=== PATIENT | male | born 1965 | race Caucasian/White ===

== ENCOUNTER 2020-12-13 08:50 | Outpatient (REF) | payer BC, SELFPAY ==
[2020-12-13 09:32] LABS: Glucose Fasting 127 mg/dL (60-99)
[2020-12-13 09:41] LABS: Estimated Average Glucose 126 mg/dL
[2020-12-13 10:02] LABS: Prostate Specific Antigen 0.63 ng/mL (<0.05-4.0)
== END 2020-12-13 08:51 | disposition home or self-care (01) ==
LOC: HO.LAB 08:50
PROVIDERS: PCP Internal Medicine; Visit Provider Internal Medicine
DX: Z00.00 Encounter for general adult medical examination without abnormal findings (principal); R73.01 Impaired fasting glucose; E66.9 Obesity, unspecified
CPT/HCPCS: 36415; 82947; 83036; 84153

== ENCOUNTER 2021-03-10 06:26 | Outpatient (REF) | payer BC, SELFPAY ==
[2021-03-10 07:00] LABS: MANUAL DIFF FLAG NO
[2021-03-10 07:11] LABS: Basophils Percent Auto 1.2 % (0-2); Eosinophils Absolute Auto 0.1 X10*3/uL (0.0-0.4); Eosinophils Percent Auto 2.4 % (0-4); Hematocrit 46.8 % (42-52); Imm Gran Abs Auto 0.01 X10*3/uL (0.00-0.03); Imm Gran Pct Auto 0.3 % (0.0-0.4); Lymphocytes Absolute Auto 0.8 X10*3/uL (1.2-4.9); Lymphocytes Percent Auto 23.8 % (20-40); Mean Corpuscular HGB Conc 34.2 g/dl (31.0-36.0); Mean Corpuscular Hemoglobin 30.5 pg (27.0-33.0); Mean Corpuscular Volume 89.1 fL (80-98); Mean Platelet Volume 9.9 fL (9.4-12.4); Monocytes Absolute Auto 0.3 X10*3/uL (0.1-1.2); Monocytes Percent Auto 7.9 % (2-11); Neutrophils Absolute Auto 2.1 X10*3/uL (2.0-8.3); Neutrophils Percent Auto 64.4 % (45-73); Platelet Count 200 X10*3/uL (160-400); Red Blood Count 5.25 X10*6/uL (4.60-5.80); Red Cell Distribution Width 11.9 % (11.0-16.0); White Blood Count 3.3 X10*3/uL (4.8-10.8)
[2021-03-10 08:07] LABS: Estimated Average Glucose 126 mg/dL
[2021-03-10 08:11] LABS: Free T4 (Free Thyroxine) 1.01 ng/dL (0.71-1.85); Prostate Specific Antigen Scr 0.51 ng/mL (<0.05-4.0); Thyroid Stimulating Hormone 1.17 uIU/mL (0.32-4.0)
[2021-03-10 08:38] LABS: Alanine Aminotransferase 34 U/L (0-40); Albumin Level 4.3 g/dL (3.5-5.0); Alkaline Phosphatase 93 U/L (39-117); Anion Gap 12 (12-20); Aspartate Amino Transferase 23 U/L (5-37); Bilirubin Total 0.7 mg/dL (0.0-1.0); Blood Urea Nitrogen 24 mg/dL (9-16); Calcium 9.5 mg/dL (8.4-10.2); Carbon Dioxide 27 mmol/L (22-29); Chloride 103 mmol/L (96-108); Cholesterol 210 mg/dL; Estimated Glomerular Filt Rate > 60; Glucose Random 132 mg/dL (60-115); HDL Cholesterol 48 mg/dL; LDL Cholesterol Calculated 139 mg/dl; Potassium 4.3 mmol/L (3.3-5.1); Sodium 138 mmol/L (135-145); Total Protein 6.7 g/dL (6.5-8.0); Triglycerides 117 mg/dL
[2021-03-10 09:34] LABS: Folate 16.8 ng/mL (> or = 4.0); Vitamin B12 566 pg/mL (200-900)
== END 2021-03-10 06:27 | disposition home or self-care (01) ==
LOC: HO.LAB 06:26
PROVIDERS: PCP Internal Medicine; Visit Provider Internal Medicine
DX: R73.02 Impaired glucose tolerance (oral) (principal); E78.00 Pure hypercholesterolemia, unspecified
CPT/HCPCS: 36415; 80053; 80061; 82607; 82746; 83036; 84153; 84439; 84443; 85025

== ENCOUNTER 2022-06-15 07:07 | Outpatient (REF) | payer BC, SELFPAY ==
[2022-06-15 10:44] LABS: Estimated Average Glucose 140 mg/dL; Hemoglobin A1c % 6.5 %
[2022-06-15 10:50] LABS: Alanine Aminotransferase 40 U/L (0-40); Albumin Level 4.2 g/dL (3.5-5.0); Alkaline Phosphatase 78 U/L (39-117); Anion Gap 14 (12-20); Aspartate Amino Transferase 24 U/L (5-37); Bilirubin Total 0.7 mg/dL (0.0-1.0); Blood Urea Nitrogen 17 mg/dL (9-16); Calcium 9.2 mg/dL (8.4-10.2); Carbon Dioxide 28 mmol/L (22-29); Chloride 101 mmol/L (96-108); Cholesterol 221 mg/dL; Estimated Glomerular Filt Rate > 60; Glucose Random 142 mg/dL (60-115); HDL Cholesterol 45 mg/dL; LDL Cholesterol Calculated 149 mg/dl; Potassium 4.4 mmol/L (3.3-5.1); Sodium 139 mmol/L (135-145); Total Protein 6.8 g/dL (6.5-8.0); Triglycerides 136 mg/dL
== END 2022-06-15 07:08 | disposition home or self-care (01) ==
LOC: HO.WFDLDS 07:07
PROVIDERS: PCP Internal Medicine; Visit Provider Internal Medicine
DX: E78.00 Pure hypercholesterolemia, unspecified (principal); R73.02 Impaired glucose tolerance (oral)
CPT/HCPCS: 36415; 80053; 80061; 83036

== ENCOUNTER 2022-10-18 07:38 | Outpatient (REF) | payer BC, SELFPAY ==
[2022-10-18 11:12] LABS: Estimated Average Glucose 126 mg/dL
[2022-10-18 11:33] LABS: Alanine Aminotransferase 29 U/L (0-40); Albumin Level 4.4 g/dL (3.5-5.0); Anion Gap 11 (12-20); Aspartate Amino Transferase 22 U/L (5-37); Bilirubin Total 1.2 mg/dL (0.0-1.0); Blood Urea Nitrogen 16 mg/dL (9-16); Calcium 9.7 mg/dL (8.4-10.2); Carbon Dioxide 31 mmol/L (22-29); Chloride 104 mmol/L (96-108); Cholesterol 191 mg/dL; Estimated Glomerular Filt Rate > 60; Glucose Random 130 mg/dL (60-115); HDL Cholesterol 48 mg/dL; LDL Cholesterol Calculated 123 mg/dl; Sodium 142 mmol/L (135-145); Total Protein 6.7 g/dL (6.5-8.0); Triglycerides 100 mg/dL
[2022-10-18 12:07] LABS: Alkaline Phosphatase 79 U/L (39-117)
[2022-10-18 12:13] LABS: Creatinine Urine 155.09 mg/dL; Microalbum/Creatinine Ratio Ur 5.1 ug/mg cr
== END 2022-10-18 07:39 | disposition home or self-care (01) ==
LOC: HO.WFDLDS 07:38
PROVIDERS: Visit Provider Internal Medicine
DX: E11.65 Type 2 diabetes mellitus with hyperglycemia (principal); E78.00 Pure hypercholesterolemia, unspecified
CPT/HCPCS: 36415; 80053; 80061; 82043; 83036

== ENCOUNTER → 2023-01-08 07:43 | Outpatient (REF) | payer OTHER, SELFPAY ==
--- NOTE | 2023-01-08 07:50 | CA_ITS ---
Acquisition Time: 2023-01-08 08:09:22 Total Exercise Time: 00:11:05 Test Indications: CP, PALPITATIONS Medications: SEE H Protocol: DIEGO Max HR: 148 BPM 91% of Pred: 161 BPM Max BP: 204/064 mmHG Max Work Load: 13.4 METS Exercise stress test with exercise 11 min 5 sec of Diego protocol, achieving 92% MPHR, without anginal symptoms, with isolated PVCs at rest and in recovery with runs of bigeminy, and trigeminy , with hypertensive response to exercise with max BP 204/64, without EKG changes meeting criteria for ischemia. In recovery his BP returned to 128/82 . Test reviewed with Dr Bernstein. Referred By: Leticia Holt Overread By: AISLINN RIVERA
== END ==
LOC: HO.CARD 07:43
PROVIDERS: PCP Internal Medicine; Visit Provider Nurse Practitioner Family
DX: R07.89 Other chest pain (principal)
CPT/HCPCS: 93017

== ENCOUNTER → 2023-01-29 15:46 | Outpatient (REF) | payer OTHER, SELFPAY ==
--- NOTE | 2023-01-29 15:49 | CA_ITS ---
Transthoracic Echocardiogram Patient (Last, First, Middle): Marcus Abreu J Gender: Male Date of : 1965 Age: 57 Procedure Date: 01/29/2023 Procedure Type: Transthoracic Echocardiogram Location: OP Height: 175.26 cm Weight: 88.45 kg BSA: 2.04 m2 Heart Rate: bpm BP: 120 / 70 mmHg [place]: Referring MD: Mary Ayers MD Symptoms: I10 - Essential (primary) hypertension Study Quality: Good ECG Rhythm: Sinus Conclusions: - The left ventricular systolic function is normal. The calculated ejection fraction is 66% by biplane method. - No obvious valvular pathology seen on this study. - There is mild dilatation of the ascending aorta measuring 3.70 cm. Findings Left Ventricle Normal left ventricular cavity size. There is mildly increased left ventricular wall thickness. The left ventricular systolic function is normal. The calculated ejection fraction is 66% by biplane method. There is no evidence of regional wall motion abnormalities. Diastolic function is normal for age. Right Ventricle Normal right ventricular cavity size and systolic function. Atria Both atria are normal in size. Aortic Valve There is a normal trileaflet aortic valve. There is no aortic valve stenosis. There is no aortic valve regurgitation. Mitral Valve The mitral valve appears normal. There is no mitral valve regurgitation. There is no mitral valve stenosis. Pulmonic Valve The pulmonic valve is likely normal. Tricuspid Valve Normal tricuspid valve structure. There is trace tricuspid valve regurgitation. There is no evidence of pulmonary hypertension. Great Vessels There is mild dilatation of the ascending aorta measuring 3.70 cm. Venous The inferior vena cava is normal in size and collapses greater than 50% with inspiration. Pericardium/Pleural There is no evidence of pericardial effusion. Prior Study Comparison No prior study available for comparison. Recommendations, Care & Conclusions No obvious valvular pathology seen on this study. Measurements 2D Linear Measurements IVSd: 1.15 0.6-0.9/0.6-1.0 cm LVIDd: 4.41 3.9-5.3/4.2-5.9 cm LVIDd Index: 2.16 2.4-3.2/2.2-3.1 cm/m2 LVIDs: 2.67 2.0-3.6 cm LVPWd: 1.12 0.7-1.1 cm Ao Root: 3.10 2.1-3.5 cm LA Diam: 4.00 2.7-3.8/3.0-4.0 cm LAIDs Index: 1.96 1.5-2.3 cm/m2 LV Mass: 220.80 67-162/88-224 g LV Mass Index: 108.24 43-95/49-115 g/m2 LVOT Diam: 2.00 3.0+(-)1.3 cm 2D Systolic Function EF 4C: 67.20 >55% EF 2C: 66.10 >55% EF BiP: 66.40 >55% Mitral Valve MV Pk E: 0.94 MV PK A: 0.80 MV Decel Time: 195.00 E/A: 1.20 E'Lateral: 11.90 E'Medial: 7.29 E/E' Med: 12.90 E/E' Lat: 7.90 PHT: 57.00 MVA PHT: 3.86 Decel Sanborn: 4.80 Aortic Valve AoV Pk Tyrell: 1.87 AoV Mn Tyrell: 1.13 AoV VTI: 0.39 AoV Pk Grad: 14.00 Aov Mn Grad: 7.00 YOUSIF Cont.VTI: 2.09 LVOT LVOT Pk Tyrell: 1.22 LVOT Mn Tyrell: 0.77 LVOT VTI: 0.26 LVOT Pk Grad: 6.00 LVOT Mn Grad: 3.00 LVOT Diam: 2.00 LVOT Area: 3.14 Diastolic Function MV Pk E: 0.94 MV Pk A: 0.80 E/A: 1.20 E'Medial: 7.29 E/E' Med: 12.90 E' Laterial: 11.90 E/E' Lat: 7.90 Right Ventricle TAPSE (mm): 28.00 TVS' Tyrell: 16.00 Tricuspid Valve TR Pk Tyrell: 2.34 TR Pk Grad: 22.00 RA Press: 3.00 RVSP: 25.00 Great Vessels Aorta Ao Root-2D: 3.10 2.0-3.7 cm Ao Asc: 3.70 2.1-3.4 cm Pulmonary Valve PV Pk Tyrell: 1.49 Peak PV Grad: 9.00 Updated in Other Vendor System with Status of Final Robbie Simon MD electronically signed on 01/29/2023 4:54:18 PM with status of Final
== END ==
LOC: HO.CARD 15:46
PROVIDERS: Visit Provider Internal Medicine
DX: I10 Essential (primary) hypertension (principal)
CPT/HCPCS: 93306

== ENCOUNTER 2023-06-19 08:00 | Outpatient (REF) | payer OTHER, SELFPAY ==
[2023-06-19 11:10] LABS: MANUAL DIFF FLAG NO
[2023-06-19 11:22] LABS: Basophils Percent Auto 0.6 % (0-2); Eosinophils Absolute Auto 0.1 X10*3/uL (0.0-0.4); Eosinophils Percent Auto 1.9 % (0-4); Hematocrit 45.3 % (42.0-52.0); Hemoglobin 15.5 g/dl (14.0-18.0); Imm Gran Abs Auto 0.01 X10*3/uL (0.00-0.03); Imm Gran Pct Auto 0.3 % (0.0-0.4); Lymphocytes Absolute Auto 0.9 X10*3/uL (1.2-4.9); Lymphocytes Percent Auto 30.3 % (20-40); Mean Corpuscular HGB Conc 34.2 g/dl (31.0-36.0); Mean Corpuscular Hemoglobin 30.4 pg (27.0-33.0); Mean Corpuscular Volume 88.8 fL (80.0-98.0); Mean Platelet Volume 10.1 fL (9.4-12.4); Monocytes Absolute Auto 0.3 X10*3/uL (0.1-1.2); Monocytes Percent Auto 8.4 % (2-11); Neutrophils Absolute Auto 1.8 x10*3/uL (2.0-8.3); Neutrophils Percent Auto 58.5 % (45-73); Platelet Count 205 X10*3/uL (160-400); Red Cell Distribution Width 11.5 % (11.0-16.0); White Blood Count 3.1 X10*3/uL (4.8-10.8)
[2023-06-19 11:54] LABS: Alanine Aminotransferase 24 U/L (0-40); Albumin Level 4.1 g/dL (3.5-5.0); Alkaline Phosphatase 79 U/L (39-117); Anion Gap 11 (12-20); Aspartate Amino Transferase 20 U/L (5-37); Bilirubin Total 0.7 mg/dL (0.0-1.0); Blood Urea Nitrogen 19 mg/dL (9-16); Calcium 9.5 mg/dL (8.4-10.2); Carbon Dioxide 26 mmol/L (22-29); Chloride 105 mmol/L (96-108); Cholesterol 198 mg/dL (<200); Estimated Glomerular Filt Rate > 60; Glucose Random 127 mg/dL (60-115); HDL Cholesterol 43 mg/dL (>40); LDL Cholesterol Calculated 129 mg/dL (<100); Potassium 4.1 mmol/L (3.3-5.1); Sodium 138 mmol/L (135-145); Total Protein 6.7 g/dL (6.5-8.0); Triglycerides 131 mg/dL (<150)
[2023-06-19 12:12] LABS: Free T4 (Free Thyroxine) 0.88 ng/dL (0.71-1.85); Thyroid Stimulating Hormone 1.53 uIU/mL (0.32-4.0)
[2023-06-19 12:25] LABS: Creatinine Urine 86.13 mg/dL; Microalbumin Urine < 5.0 mg/L
[2023-06-19 12:27] LABS: Folate 13.5 ng/mL (> or = 4.0); Prostate Specific Antigen Scr 0.63 ng/mL (<0.05-4.0); Vitamin B12 859 pg/mL (200-900)
== END 2023-06-19 08:01 | disposition home or self-care (01) ==
LOC: HO.WFDLDS 08:00
PROVIDERS: Visit Provider Internal Medicine
DX: E11.65 Type 2 diabetes mellitus with hyperglycemia (principal); E78.00 Pure hypercholesterolemia, unspecified
CPT/HCPCS: 36415; 80053; 80061; 82043; 82607; 82746; 84153; 84439; 84443; 85025

== ENCOUNTER 2023-06-25 16:42 | Outpatient (AMB) | payer OTHER, SELFPAY ==
[2023-06-25 16:53] VITALS: BP 136/70; PULSE 70; O2SAT 98; BMI 30.1
--- NOTE | 2023-06-25 16:53 | MHC.PC.OV ---
Vital Signs 06/25/23 16:53 Height 5 ft 8 in Weight 198 lb BMI 30.1 BP 136/70 Blood Pressure Location Lt brachial Position Sitting Pulse 70 Pulse Source Pulse Oximeter Pulse Oximetry (%) 98 Oxygen Delivery Method Room Air Intake Visit Reasons: PHYSICAL Allergies Sulfa (Sulfonamide Antibiotics) [SULFA (SULFONAMIDE ANTIBIOTICS)] Allergy (Unknown, Verified 06/25/23 16:53) HIVES, swelling and itchiness sulfamethoxazole [From Junra] Allergy (Unknown, Verified 06/25/23 16:53) Unknown trimethoprim [From Junra] Allergy (Unknown, Verified 06/25/23 16:53) Unknown Medication List - Last Reconciled 06/25/23 by Mary Ayers MD blood sugar diagnostic (FreeStyle Lite Strips) As directed check the BS QD blood-glucose meter (FreeStyle Lite Meter kit) As directed cholecalciferol (vitamin D3) 50 mcg PO DAILY cyanocobalamin (vitamin B-12) 1,000 mcg PO DAILY lancets (FreeStyle Lancets) As directed check BS QD lisinopril 5 mg PO DAILY multivitamin 1 tab PO DAILY Tobacco use date assessed: 01/03/23 Dental Screening Dental Screen Date: 06/25/23 Did you have a dental visit in the last 12 months?: Yes Did you have a dental problem in the last 6 months where you did not have access to dental care?: No Was dental information given to patient?: Patient has dentist HPI PHYSICAL HPI Details 57-year-old obese male with diabetes mellitus controlled hypercholesterolemia hypertension last seen in October coming in today for physical exam. Blood work was requested. Colonoscopy is up-to-date. Patient had an echocardiogram done January 2023 left ventricular ejection fraction is normal 66% no valvular pathology mild dilatation of the ascending aorta 3.7 cm. Stress test was done January 15- occ dizzy PFSH Medical History Hypercholesterolemia Hypertension Impaired glucose tolerance Leukopenia Obesity (BMI 30-39.9) Vitamin D deficiency Surgical History History of vasectomy Status post excision of lipoma Family History (Updated 06/25/23 @ 16:54 by Chandni Dyer CMA) Father Esophageal cancer Mother No problems noted. Brother Liver cancer Colon cancer Paternal Uncle Mouth cancer Lung cancer Leukemia Myocardial infarct Daughter In good health Family/Other Alcohol abuse Social History (Updated 06/25/23 @ 17:24 by Mary Ayers MD) Housing: House Alcohol intake: current Alcohol intake frequency: holidays/special occasions only Alcohol type: beer, wine and hard liquor Patient Tobacco Use Status: Never used Tobacco e-Cigarette/Vaping Use: Never Used Second Hand Smoke Exposure: No service: No Current occupational status: employed Cognitive needs: No Hearing needs: No Vision needs: Yes Questionnaire PHQ-9 Over the last 2 weeks, how often have you been bothered by any of the following problems? 1. Little interest or pleasure in doing things: not at all 2. Feeling down, depressed, or hopeless: not at all 3. Trouble falling or staying asleep, or sleeping too much: not at all 4. Feeling tired or having little energy: not at all 5. Poor appetite or overeating: not at all 6. Feeling bad about yourself - or that you are a failure or have let yourself or your family down: not at all 7. Trouble concentrating on things, such as reading the newspaper or watching television: not at all 8. Moving or speaking so slowly that other people could have noticed. Or the opposite - being so fidgety or restless that you have been moving around a lot more than usual: not at all 9. Thoughts that you would be better off or of hurting yourself in some way: not at all Total score: 0 Depression Screening Interpretation: Negative Source: Developed by Drs. Ang Adam, Anca Elizondo, Jean Marie Castañeda and colleagues, with an educational anita from [employer]. Thrive Questionnaire Date Thrive assessed: 11/24/22 AUDIT C Alcohol Use Questionnaire (AUDIT-C) 1. How often do you have a drink containing alcohol?: Monthly or less 2. How many drinks containing alcohol do you have on a typical day when you are drinking?: 3 or 4 3. How often do you have six or more drinks on one occasion?: Never Total Score: 2 Score Reviewed/Action Taken: No JACQUI-7 AMB Questionnaire JACQUI-7 Date JACQUI - 7 assessed: 11/24/22 Source: Developed by Drs. Ang Adam, Anca Elizondo, Jean Marie Castañeda and colleagues, with an educational anita from [employer]. Review of Systems Const Denies poor appetite and Denies weakness Eyes Denies no additional complaints ENT Reports Normal hearing present, Denies dizziness, Denies nasal congestion, Denies tinnitus and Denies sore throat Card Denies chest pain, Denies syncope, Denies rapid heart rate and Denies dyspnea Resp Denies cough and Denies dyspnea GI Denies change in stool character, Reports constipation, Denies diarrhea, Denies nausea and Denies vomiting Denies dysuria and Denies urinary frequency Neuro Reports Normal hearing present, Denies confusion, Denies dizziness, Denies syncope and Denies weakness Psych Denies confusion Physical exam (Primary Care) Vital Signs: Last Vital Signs Pulse 70 06/25/23 16:53 BP 136/70 06/25/23 16:53 Pulse Ox 98 06/25/23 16:53 Oxygen Delivery Method Room Air 06/25/23 16:53 Care Plan Goal for BP management: guaiac negative and prostate N BMI result Body Mass Index 30.1 Tobacco/Smoking Status: Tobacco use Status Tobacco use date assessed 01/03/23 06/25/23 16:55 Patient Tobacco Use Status Never used Tobacco 06/25/23 17:24 e-Cigarette/Vaping Use Never Used 06/25/23 17:24 PHQ-9: PHQ-9 Score PHQ-9: Total score 0 06/25/23 17:16 Depression Screening Interpretation: Negative Thrive Assessment: Date of Thrive Assessment Date Thrive assessed 11/24/22 06/25/23 16:55 Const General: No confusion Orientation/consciousness: No confusion HENIA Head: Yes normocephalic Ears: external ears normal and TM's normal bilaterally Face and sinus: Yes normal facial exam Mouth: moist mucous membranes Throat: Yes tonsils normal Eyes Conjunctivae: conjunctivae normal Pupils: Equal, round and reactive pupils present and Pupil accommodation reflex normal Direct Ophthalmoscopy: normal light reflex Neck Neck: No lymphadenopathy Thyroid: Thyroid normal Chest Chest palpation & inspection: normal inspection of the chest Resp Effort & Inspection: normal respiratory effort and no audible wheezes Auscultation: clear to auscultation bilaterally, no crackles, no wheezes and lung sounds not diminished Cardio Rate: regular rate Rhythm: regular rhythm Peripheral pulses: radial pulses present and dorsalis pedis present GI Palpation (GI): no masses Auscultation: normal bowel sounds and normoactive bowel sounds Male General Exam: Yes normal external exam Skin General skin exam: no rashes or lesions noted Rashes: no rashes Neuro General: No confusion Cranial nerves: Yes Equal, round and reactive pupils present and Yes Normal hearing present Cognition (Neuro): normal cognition Gait exam (Neuro): Normal gait present Motor exam (neuro): 5/5 motor strength present throughout Deep tendon reflexes (DTR's): Right brachioradialis reflex intensity grade: 2+, Left brachioradialis reflex intensity grade: 2+, Right patellar reflex intensity grade: 2+ and Left patellar reflex intensity grade: 2+ Extrem General: No edema Results AMB Hemoglobin A1c AMB Hemoglobin A1c 6.1 % Last Edit by WILBUR Ibarra on 06/25/23 17:46 Assessment and Plan Assessment & Plan (1) Annual physical exam: Code(s): Z00.00 - Encounter for general adult medical examination without abnormal findings (2) Type 2 diabetes mellitus with hyperglycemia: Code(s): E11.65 - Type 2 diabetes mellitus with hyperglycemia Plan: Decrease the amount of carbohydrate intake, pasta, bread, rice and potatoes are all sugar and that is aside from all the sweet stuff, remember that fruits are good but they are Sweet also. Hemoglobin A1c goal of less than 6.5 (3) Chest discomfort: Comment: intermittent December 2022 stress test negative, echocardiogram normal ejection fraction January 2023 Code(s): R07.89 - Other chest pain Plan: Cardiac workup negative (4) Ascending aorta dilatation: Comment: January 2023 3.7 Code(s): I77.810 - Thoracic aortic ectasia Plan: Will continue to follow-up (5) Hypercholesterolemia: Code(s): E78.00 - Pure hypercholesterolemia, unspecified Plan: Avoid fried foods, chicken skin, eggs, butter margarine, pastries and meat. Be it pork or beef they have a lot of cholesterol LDL goal of less than 100 and triglyceride of less than 150. decline blood work and cholesterol med (6) Hypertension: Code(s): I10 - Essential (primary) hypertension Plan: Continue with blood pressure medication. Decrease salt intake and exercise patient on lisinopril 5 mg once a day (7) Obesity (BMI 30-39.9): Code(s): E66.9 - Obesity, unspecified Plan: Diet and exercise (8) Multiple nevi: Code(s): D22.9 - Melanocytic nevi, unspecified Orders: Orders Comprehensive Met. Panel 6 Months E11.65 - Type 2 diabetes mellitus with hyperglycemia Hemoglobin A1c 6 Months E11.65 - Type 2 diabetes mellitus with hyperglycemia Lipid Panel 6 Months E78.00 - Pure hypercholesterolemia, unspecified AMB Hemoglobin A1c Today Z13.9 - Encounter for screening, unspecified Referrals Dermatology Referral D22.9 - Melanocytic nevi, unspecified Medications: Refilled lisinopril 5 mg PO DAILY 90 tabs 3RF I10 - Essential (primary) hypertension Coding Level of Care Code Est Pt Prev Care 40-64y(41764) Diagnoses Annual physical exam Z00.00 Type 2 diabetes mellitus with hyperglycemia E11.65 Chest discomfort R07.89 Ascending aorta dilatation I77.810 Hypercholesterolemia E78.00 Hypertension I10 Obesity (BMI 30-39.9) E66.9 Multiple nevi D22.9
== END 2023-06-25 17:56 | disposition home or self-care (01) ==
PROVIDERS: Visit Provider Internal Medicine
DX: Z00.00 Encounter for general adult medical examination without abnormal findings (principal); E11.65 Type 2 diabetes mellitus with hyperglycemia; I77.810 Thoracic aortic ectasia; I10 Essential (primary) hypertension; R07.89 Other chest pain; E78.00 Pure hypercholesterolemia, unspecified; E66.9 Obesity, unspecified; D22.9 Melanocytic nevi, unspecified
CPT/HCPCS: 83036; 99396

== ENCOUNTER 2023-12-06 08:28 | Outpatient (REF) | payer OTHER, SELFPAY ==
[2023-12-06 12:05] LABS: Estimated Average Glucose 143 mg/dL; Hemoglobin A1c % 6.6 % (<6.0)
[2023-12-06 12:28] LABS: Alanine Aminotransferase 35 U/L (0-40); Albumin Level 4.2 g/dL (3.5-5.0); Alkaline Phosphatase 72 U/L (39-117); Anion Gap 12 (12-20); Aspartate Amino Transferase 23 U/L (5-37); Bilirubin Total 0.8 mg/dL (0.0-1.0); Blood Urea Nitrogen 22 mg/dL (9-16); Calcium 9.7 mg/dL (8.4-10.2); Carbon Dioxide 29 mmol/L (22-29); Chloride 101 mmol/L (96-108); Cholesterol 264 mg/dL (<200); Estimated Glomerular Filt Rate > 60; Glucose Random 150 mg/dL (60-115); HDL Cholesterol 47 mg/dL (>40); LDL Cholesterol Calculated 183 mg/dL (<100); Potassium 4.3 mmol/L (3.3-5.1); Sodium 138 mmol/L (135-145); Triglycerides 174 mg/dL (<150)
[2023-12-06 12:31] LABS: Creatinine Urine 130.17 mg/dL
== END 2023-12-06 08:29 | disposition home or self-care (01) ==
LOC: HO.WFDLDS 08:28
PROVIDERS: Visit Provider Internal Medicine
DX: E11.65 Type 2 diabetes mellitus with hyperglycemia (principal); E78.00 Pure hypercholesterolemia, unspecified
CPT/HCPCS: 36415; 80053; 80061; 82570; 83036

== ENCOUNTER 2023-12-07 15:26 | Outpatient (AMB) | payer OTHER, SELFPAY ==
[2023-12-07 15:38] VITALS: BP 134/82; PULSE 88; O2SAT 99; BMI 31.6
--- NOTE | 2023-12-07 15:38 | MHC.PC.OV ---
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 Accompanied by: Self / Same As Patient Allergies Sulfa (Sulfonamide Antibiotics) [SULFA (SULFONAMIDE ANTIBIOTICS)] Allergy (Unknown, Verified 12/07/23 15:41) HIVES, swelling and itchiness sulfamethoxazole [From Septra] Allergy (Unknown, Verified 12/07/23 15:41) Unknown trimethoprim [From Junra] Allergy (Unknown, Verified 12/07/23 15:41) Unknown Medication List - Last Reconciled 12/07/23 by Mary Ayers MD blood sugar diagnostic (FreeStyle Lite Strips) As directed check the BS QD blood-glucose meter (FreeStyle Lite Meter kit) As directed cholecalciferol (vitamin D3) 50 mcg PO DAILY cyanocobalamin (vitamin B-12) 1,000 mcg PO DAILY lancets (FreeStyle Lancets) As directed check BS QD lisinopril 5 mg PO DAILY multivitamin 1 tab PO DAILY Tobacco use date assessed: 12/07/23 Dental Screening Dental Screen Date: 12/07/23 Did you have a dental visit in the last 12 months?: Yes Did you have a dental problem in the last 6 months where you did not have access to dental care?: No Was dental information given to patient?: Patient has dentist HPI Follow up glucose labs HPI Details 58-year-old obese male with diabetes mellitus ascending aorta dilatation hypercholesterolemia hypertension coming in for follow-up last seen in May 2023. Patient is up-to-date with colonoscopy patient also was noted to have an ascending aorta dilatation February 2023. Eye exam September 2023. 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 Brother Liver cancer Colon cancer Paternal Uncle Mouth cancer Lung cancer Leukemia Myocardial infarct Daughter In good health Family/Other Alcohol abuse Social History Housing: House Alcohol intake: current Alcohol intake frequency: holidays/special occasions only Alcohol type: beer, wine and hard liquor Patient Tobacco Use Status: Never used Tobacco e-Cigarette/Vaping Use: Never Used Second Hand Smoke Exposure: No service: No Current occupational status: employed Cognitive needs: No Hearing needs: No Vision needs: Yes Questionnaire PHQ-9 Over the last 2 weeks, how often have you been bothered by any of the following problems? 1. Little interest or pleasure in doing things: not at all 2. Feeling down, depressed, or hopeless: not at all 3. Trouble falling or staying asleep, or sleeping too much: not at all 4. Feeling tired or having little energy: not at all 5. Poor appetite or overeating: not at all 6. Feeling bad about yourself - or that you are a failure or have let yourself or your family down: not at all 7. Trouble concentrating on things, such as reading the newspaper or watching television: not at all 8. Moving or speaking so slowly that other people could have noticed. Or the opposite - being so fidgety or restless that you have been moving around a lot more than usual: not at all 9. Thoughts that you would be better off or of hurting yourself in some way: not at all Total score: 0 Depression Screening Interpretation: Negative Depression Screening Done: Yes 23764 - PHQ-9 Billing: Yes Source: Developed by Drs. Ang Adam, Anca Elizondo, Jean Marie Castañeda and colleagues, with an educational anita from [employer]. Thrive Questionnaire Date Thrive assessed: 12/07/23 I am a: Patient What is your living situation today?: I have a steady place to live Within the past 12 months, did the food you bought not last and you didn't have the money to get more?: Never true Within the past 12 months, did you worry whether your food would run out before you got money to buy more?: Never true Do you have trouble paying for medicines?: No Do you have trouble getting transportation to medical appointments?: No Do you have trouble paying your heating and electricity bill?: No Do you have trouble taking care of your child, family member or friend?: No Do you have trouble with day-to-day activities such as bathing, preparing meals, shopping, managing finances, etc.?: No Are you currently unemployed and looking for a job?: No Are you interested in more education?: No Please select the resources that you would like help with: None Currently or been in a relationship where the following occur: no concerns reported THRIVE Score: 0 AUDIT C Alcohol Use Questionnaire (AUDIT-C) 1. How often do you have a drink containing alcohol?: 2-3 times a week 2. How many drinks containing alcohol do you have on a typical day when you are drinking?: 3 or 4 3. How often do you have six or more drinks on one occasion?: Never Total Score: 4 JACQUI-7 AMB Questionnaire JACQUI-7 Date JACQUI - 7 assessed: 12/07/23 Feeling nervous, anxious, or on edge: 0 = Not at all Not being able to stop or control worryin = Not at all Worrying too much about different things: 0 = Not at all Trouble relaxin = Not at all Being so restless that it is hard to sit still: 0 = Not at all Becoming easily annoyed or irritable: 0 = Not at all Feeling afraid as if something awful might happen: 0 = Not at all Total JACQUI-7 score (0-4 normal; 5-9 mild; 10-14 moderate; 15-21 severe): 0 Source: Developed by Drs. Ang Adam, Anca Elizondo, Jean Marie Castañeda and colleagues, with an educational anita from [employer]. JACQUI-7 Assessment Billing JACQUI-7 Assessment Tool: JACQUI-7 Assessment 97989 Physical exam (Primary Care) BMI result Body Mass Index 31.6 Tobacco/Smoking Status: Tobacco use Status Tobacco use date assessed 01/03/23 06/25/23 16:55 Patient Tobacco Use Status Never used Tobacco 06/25/23 17:24 e-Cigarette/Vaping Use Never Used 06/25/23 17:24 Depression Screening Interpretation: Negative Thrive Assessment: Date of Thrive Assessment Date Thrive assessed 11/24/22 06/25/23 16:55 Currently or been in a relationship where the following occur: no concerns reported Const General: alert; No acute distress Eyes Conjunctivae: conjunctivae normal Resp Auscultation: clear to auscultation bilaterally Cardio Rate: regular rate Rhythm: regular rhythm GI Inspection: Yes normal to inspection Extrem General: Yes normal to inspection and No edema Assessment and Plan Assessment & Plan (1) Type 2 diabetes mellitus with hyperglycemia: Code(s): E11.65 - Type 2 diabetes mellitus with hyperglycemia Plan: Decrease the amount of carbohydrate intake, pasta, bread, rice and potatoes are all sugar and that is aside from all the sweet stuff, remember that fruits are good but they are Sweet also. Hemoglobin A1c goal of less than 6.5. Discussed with the patient on the need to eat better and exercise so that the blood sugar with get lower (2) Hypercholesterolemia: Code(s): E78.00 - Pure hypercholesterolemia, unspecified Plan: Avoid fried foods, chicken skin, eggs, butter margarine, pastries and meat. Be it pork or beef they have a lot of cholesterol LDL goal of less than 100 and triglyceride of less than 150 start patient on simvastatin 5 mg once a day (3) Hypertension: Code(s): I10 - Essential (primary) hypertension Plan: Continue with lisinopril 5 mg once a day (4) Obesity (BMI 30-39.9): Code(s): E66.9 - Obesity, unspecified Plan: Diet and exercise (5) Ascending aorta dilatation: Comment: January 2023 3.7 Code(s): I77.810 - Thoracic aortic ectasia Plan: Will continue to monitor Orders: Orders Lipid Panel 3 Months E78.00 - Pure hypercholesterolemia, unspecified Comprehensive Met. Panel 3 Months E78.00 - Pure hypercholesterolemia, unspecified Hemoglobin A1c 3 Months E11.65 - Type 2 diabetes mellitus with hyperglycemia Medications: New simvastatin 5 mg PO BEDTIME 30 tabs 5RF E78.00 - Pure hypercholesterolemia, unspecified Coding Level of Care Code Est Pt Level 4 (58685) Diagnoses Type 2 diabetes mellitus with hyperglycemia E11.65 Hypercholesterolemia E78.00 Hypertension I10 Obesity (BMI 30-39.9) E66.9 Ascending aorta dilatation I77.810 Additional Codes JACQUI-7 Assessment Billing - JACQUI-7 Assessment Tool: JACQUI-7 Assessment [id number] ([id number])
== END 2023-12-07 16:05 | disposition home or self-care (01) ==
PROVIDERS: PCP Internal Medicine; Visit Provider Internal Medicine
DX: E11.65 Type 2 diabetes mellitus with hyperglycemia (principal); I77.810 Thoracic aortic ectasia; E66.9 Obesity, unspecified; Z68.31 Body mass index [BMI] 31.0-31.9, adult; E78.00 Pure hypercholesterolemia, unspecified; I10 Essential (primary) hypertension
CPT/HCPCS: 99214

== ENCOUNTER 2024-03-05 06:13 | Outpatient (REF) | payer OTHER, SELFPAY ==
[2024-03-05 08:19] LABS: Estimated Average Glucose 134 mg/dL; Hemoglobin A1c % 6.3 % (<6.0)
[2024-03-05 08:31] LABS: Alanine Aminotransferase 25 U/L (0-40); Albumin Level 4.2 g/dL (3.5-5.0); Alkaline Phosphatase 75 U/L (39-117); Anion Gap 13 (12-20); Aspartate Amino Transferase 18 U/L (5-37); Bilirubin Total 0.9 mg/dL (0.0-1.0); Blood Urea Nitrogen 19 mg/dL (9-16); Calcium 9.5 mg/dL (8.4-10.2); Carbon Dioxide 27 mmol/L (22-29); Chloride 105 mmol/L (96-108); Cholesterol 208 mg/dL (<200); Estimated Glomerular Filt Rate > 60; Glucose Random 117 mg/dL (60-115); HDL Cholesterol 47 mg/dL (>40); LDL Cholesterol Calculated 142 mg/dL (<100); Sodium 141 mmol/L (135-145); Total Protein 6.8 g/dL (6.5-8.0); Triglycerides 96 mg/dL (<150)
== END 2024-03-05 06:14 | disposition home or self-care (01) ==
LOC: HO.LAB 06:13
PROVIDERS: PCP Internal Medicine; Visit Provider Internal Medicine
DX: E11.65 Type 2 diabetes mellitus with hyperglycemia (principal); E78.00 Pure hypercholesterolemia, unspecified
CPT/HCPCS: 36415; 80053; 80061; 83036

== ENCOUNTER 2024-03-10 16:39 | Outpatient (AMB) | payer OTHER, SELFPAY ==
--- NOTE | 2024-03-10 16:41 | MHC.PC.OV ---
Vital Signs 03/10/24 16:42 Height 5 ft 8 in Weight 199 lb BMI 30.3 BP 160/92 H Blood Pressure Location Lt brachial Position Sitting Pulse 88 Pulse Source Pulse Oximeter Pulse Oximetry (%) 98 Oxygen Delivery Method Room Air Intake Visit Reasons: Hypercholesterolemia diabetes mellitus Allergies Sulfa (Sulfonamide Antibiotics) [SULFA (SULFONAMIDE ANTIBIOTICS)] Allergy (Unknown, Verified 03/10/24 16:43) HIVES, swelling and itchiness sulfamethoxazole [From Junra] Allergy (Unknown, Verified 03/10/24 16:43) Unknown trimethoprim [From Junra] Allergy (Unknown, Verified 03/10/24 16:43) Unknown Medication List - Last Reconciled 03/10/24 by Mary Ayers MD blood sugar diagnostic (FreeStyle Lite Strips) As directed check the BS QD blood-glucose meter (FreeStyle Lite Meter kit) As directed cholecalciferol (vitamin D3) 50 mcg PO DAILY cyanocobalamin (vitamin B-12) 1,000 mcg PO DAILY lancets (FreeStyle Lancets) As directed check BS QD lisinopril 5 mg PO DAILY multivitamin 1 tab PO DAILY Tobacco use date assessed: 12/07/23 Dental Screening Dental Screen Date: 03/10/24 Did you have a dental visit in the last 12 months?: Yes Did you have a dental problem in the last 6 months where you did not have access to dental care?: No Was dental information given to patient?: Patient has dentist HPI Hypercholesterolemia diabetes mellitus HPI Details 58-year-old obese male with controlled diabetes mellitus hypertension hypercholesterolemia ascending aorta dilatation coming in for follow-up. Last seen in November 2023. Weight is come down 9 lb. Colonoscopy is up-to-date October 2024 years echocardiogram last done in February 2023 ascending aorta 3.7 cm. Reviewed the notes November 2023 ER visit fever and weakness CT abdomen showing inflammatory thickening of the wall of multiple continues loops proximal to the mid small bowel compatible with enteritis. for choleserol 2nd week taking this - L arm pain so stopped . [facility] Medical History Hypercholesterolemia Hypertension Impaired glucose tolerance Leukopenia Obesity (BMI 30-39.9) Vitamin D deficiency Surgical History Status post excision of lipoma History of vasectomy Family History Father Esophageal cancer Mother No problems noted. Brother Liver cancer Colon cancer Paternal Uncle Mouth cancer Lung cancer Leukemia Myocardial infarct Daughter In good health Family/Other Alcohol abuse Social History Housing: House Alcohol intake: current Alcohol intake frequency: holidays/special occasions only Alcohol type: beer, wine and hard liquor Patient Tobacco Use Status: Never used Tobacco e-Cigarette/Vaping Use: Never Used Second Hand Smoke Exposure: No service: No Current occupational status: employed Cognitive needs: No Hearing needs: No Vision needs: Yes Questionnaire PHQ-9 Over the last 2 weeks, how often have you been bothered by any of the following problems? 1. Little interest or pleasure in doing things: not at all 2. Feeling down, depressed, or hopeless: not at all 3. Trouble falling or staying asleep, or sleeping too much: not at all 4. Feeling tired or having little energy: not at all 5. Poor appetite or overeating: not at all 6. Feeling bad about yourself - or that you are a failure or have let yourself or your family down: not at all 7. Trouble concentrating on things, such as reading the newspaper or watching television: not at all 8. Moving or speaking so slowly that other people could have noticed. Or the opposite - being so fidgety or restless that you have been moving around a lot more than usual: not at all 9. Thoughts that you would be better off or of hurting yourself in some way: not at all Total score: 0 Depression Screening Interpretation: Negative Depression Screening Done: Yes 52219 - PHQ-9 Billing: Yes Source: Developed by Drs. Ang dAam, Anca Elizondo, Jean Marie Castañeda and colleagues, with an educational anita from [email or web address]. Thrive Questionnaire Date Thrive assessed: 12/07/23 AUDIT C Alcohol Use Questionnaire (AUDIT-C) 1. How often do you have a drink containing alcohol?: 2-3 times a week 2. How many drinks containing alcohol do you have on a typical day when you are drinking?: 3 or 4 3. How often do you have six or more drinks on one occasion?: Never Total Score: 4 JACQUI-7 AMB Questionnaire JACQUI-7 Date JACQUI - 7 assessed: 12/07/23 Source: Developed by Drs. Ang Adam, Anca Elizondo, Jean Marie Castañeda and colleagues, with an educational anita from [email or web address]. Physical exam (Primary Care) Vital Signs: Last Vital Signs Pulse 88 03/10/24 16:42 BP 160/92 H 03/10/24 16:42 Pulse Ox 98 03/10/24 16:42 Oxygen Delivery Method Room Air 03/10/24 16:42 BMI result Body Mass Index 30.3 Tobacco/Smoking Status: Tobacco use Status Tobacco use date assessed 12/07/23 03/10/24 16:41 Patient Tobacco Use Status Never used Tobacco 03/10/24 16:41 e-Cigarette/Vaping Use Never Used 03/10/24 16:41 PHQ-9: PHQ-9 Score PHQ-9: Total score 0 03/10/24 16:49 Depression Screening Interpretation: Negative Thrive Assessment: Date of Thrive Assessment Date Thrive assessed 12/07/23 03/10/24 16:41 Const General: alert; No acute distress Eyes Conjunctivae: conjunctivae normal Resp Auscultation: clear to auscultation bilaterally Cardio Rate: regular rate Rhythm: regular rhythm GI Inspection: Yes normal to inspection Extrem General: Yes normal to inspection and No edema Assessment and Plan Assessment & Plan (1) Type 2 diabetes mellitus with hyperglycemia: Code(s): E11.65 - Type 2 diabetes mellitus with hyperglycemia Plan: Decrease the amount of carbohydrate intake, pasta, bread, rice and potatoes are all sugar and that is aside from all the sweet stuff, remember that fruits are good but they are Sweet also. Hemoglobin A1c goal of less than 6.5. Patient on diet control. (2) Hypertension: Code(s): I10 - Essential (primary) hypertension Plan: Continue with blood pressure medication. Decrease salt intake and exercise presently on lisinopril 5 mg once a day. advised monitor and record (3) Hypercholesterolemia: Code(s): E78.00 - Pure hypercholesterolemia, unspecified Plan: Avoid fried foods, chicken skin, eggs, butter margarine, pastries and meat. Be it pork or beef they have a lot of cholesterol LDL goal of less than 100 and triglyceride of less than 150. admits to have held using . but pain L arm not any better with no med. will start cholesterol med and retest 3 months (4) Obesity (BMI 30-39.9): Code(s): E66.9 - Obesity, unspecified Plan: Noted weight loss, continue with this (5) Ascending aorta dilatation: Comment: January 2023 3.7 Code(s): I77.810 - Thoracic aortic ectasia Plan: Ordering for echocardiogram (6) Arm pain, left: Code(s): M79.602 - Pain in left arm Plan: xray ordered. Orders: Orders CA echo transthoracic complete Today I77.810 - Thoracic aortic ectasia Hemoglobin A1c 3 Months E78.00 - Pure hypercholesterolemia, unspecified Lipid Panel 3 Months E78.00 - Pure hypercholesterolemia, unspecified Comprehensive Met. Panel 3 Months E78.00 - Pure hypercholesterolemia, unspecified XR humerus LT Today M79.602 - Pain in left arm Coding Level of Care Code Est Pt Level 4 (52978) Diagnoses Type 2 diabetes mellitus with hyperglycemia E11.65 Hypertension I10 Hypercholesterolemia E78.00 Obesity (BMI 30-39.9) E66.9 Ascending aorta dilatation I77.810 Arm pain, left M79.602
[2024-03-10 16:42] VITALS: BP 160/92; PULSE 88; O2SAT 98; BMI 30.3
== END 2024-03-10 17:18 | disposition home or self-care (01) ==
PROVIDERS: PCP Internal Medicine; Visit Provider Internal Medicine
DX: E11.65 Type 2 diabetes mellitus with hyperglycemia (principal); I77.810 Thoracic aortic ectasia; E66.9 Obesity, unspecified; Z68.30 Body mass index [BMI] 30.0-30.9, adult; I10 Essential (primary) hypertension; E78.00 Pure hypercholesterolemia, unspecified; M79.602 Pain in left arm
CPT/HCPCS: 99214

== ENCOUNTER 2024-03-14 15:30 | Outpatient (REF) | payer OTHER, SELFPAY ==
--- NOTE | ~2024-03-14 | XR_ITS ---
EXAMINATION: XR HUMERUS, LEFT CLINICAL INFORMATION: Pain in left arm COMPARISON: None available. TECHNIQUE: AP and lateral views of the left humerus. FINDINGS: The bones and soft tissues are normal. No fracture. Imaged portions of the shoulder and elbow are unremarkable. XR/XR humerus LT IMPRESSION: Normal left humerus.
== END 2024-03-14 15:31 | disposition home or self-care (01) ==
LOC: HO.XRAY 15:30
PROVIDERS: PCP Internal Medicine; Visit Provider Internal Medicine
DX: M79.602 Pain in left arm (principal)
CPT/HCPCS: 73060

== ENCOUNTER → 2024-04-02 14:46 | Outpatient (REF) | payer OTHER, SELFPAY ==
--- NOTE | 2024-04-02 14:52 | CA_ITS ---
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 Normal LV ejection fraction 60 65% 2. Mildly increased gradient across aortic valve without clear aortic stenosis 3. Normal RV systolic pressure 4. Mildly dilated ascending aorta at 3.8 cm 5. No gross pericardial effusion Findings Left Ventricle Normal left ventricular size, thickness, and systolic function. The visually estimated ejection fraction is between 60-65%. Spectral Doppler is indicative of a normal filling pattern. E/E prime ratio is between 8 and 15 consistent with indeterminate filling pressures. Right Ventricle Normal right ventricular cavity size and systolic function. Atria Both atria are normal in size. Interatrial shunt cannot be excluded. Aortic Valve The aortic valve was not well visualized. There is no aortic valve stenosis. There is no aortic valve regurgitation. Mitral Valve There is mild anterior and posterior mitral leaflet thickening. There is trace mitral valve regurgitation. There is no mitral valve stenosis. Pulmonic Valve The pulmonic valve was not well visualized. Tricuspid Valve Likely normal tricuspid valve structure and function. There is mild tricuspid valve regurgitation. The right ventricular systolic pressure is normal. The right ventricular systolic pressure is 29 mmHg. Normal right atrial pressure. There is no evidence of pulmonary hypertension. Great Vessels The pulmonary artery was not well visualized. There is mild dilatation of the ascending aorta measuring 3.80 cm. Venous The inferior vena cava is normal in size and collapses greater than 50% with inspiration. Pericardium/Pleural There is no evidence of pericardial effusion. Measurements 2D Linear Measurements IVSd: 0.75 0.6-0.9/0.6-1.0 cm LVIDd: 4.75 3.9-5.3/4.2-5.9 cm LVIDd Index: 2.32 2.4-3.2/2.2-3.1 cm/m2 LVIDs: 2.69 2.0-3.6 cm LVPWd: 0.96 0.7-1.1 cm LA Diam: 3.50 2.7-3.8/3.0-4.0 cm LAIDs Index: 1.71 1.5-2.3 cm/m2 LV Mass: 168.65 67-162/88-224 g LV Mass Index: 82.27 43-95/49-115 g/m2 LVOT Diam: 2.00 3.0+(-)1.3 cm 2D Systolic Function EF 4C: 62.90 >55% EF 2C: 67.20 >55% EF BiP: 64.30 >55% Mitral Valve MV Pk E: 0.76 MV PK A: 0.64 MV Decel Time: 229.00 E/A: 1.20 E'Lateral: 11.30 E'Medial: 7.62 E/E' Med: 10.00 E/E' Lat: 6.80 PHT: 67.00 MVA PHT: 3.28 Decel [place]: 3.33 Aortic Valve AoV Pk Tyrell: 1.69 AoV Mn Tyrell: 1.16 AoV VTI: 0.35 AoV Pk Grad: 11.00 Aov Mn Grad: 6.00 YOUSIF Cont.VTI: 2.24 LVOT LVOT Pk Tyrell: 1.16 LVOT Mn Tyrell: 0.79 LVOT VTI: 0.25 LVOT Pk Grad: 5.00 LVOT Mn Grad: 3.00 LVOT Diam: 2.00 LVOT Area: 3.14 Diastolic Function MV Pk E: 0.76 MV Pk A: 0.64 E/A: 1.20 E'Medial: 7.62 E/E' Med: 10.00 E' Laterial: 11.30 E/E' Lat: 6.80 Right Ventricle TAPSE (mm): 23.50 TVS' Tyrell: 13.20 Tricuspid Valve TR Pk Tyrell: 2.54 TR Pk Grad: 26.00 RA Press: 3.00 RVSP: 29.00 Great Vessels Aorta Sinus of Valsalva: 3.27 2.0-3.[address] [place]: 2.63 1.7-3.4 cm Ao Asc: 3.80 2.1-3.4 cm Updated in Other Vendor System with Status of Final Ludin Haywood MD electronically signed on 04/02/2024 5:12:36 PM with status of Final
== END ==
LOC: HO.CARD 14:46
PROVIDERS: PCP Internal Medicine; Visit Provider Internal Medicine
DX: I77.810 Thoracic aortic ectasia (principal)
CPT/HCPCS: 93306

== ENCOUNTER → 2024-04-02 14:52 | Outpatient (BNV) | payer OTHER, SELFPAY | PROVIDERS: PCP Internal Medicine; Visit Provider Internal Medicine Cardiovascular Disease | DX: I36.1 Nonrheumatic tricuspid (valve) insufficiency (principal); I35.8 Other nonrheumatic aortic valve disorders | CPT/HCPCS: 93306 ==

== ENCOUNTER 2024-06-19 06:13 | Outpatient (REF) | payer OTHER, SELFPAY ==
[2024-06-19 07:27] LABS: Estimated Average Glucose 128 mg/dL; Hemoglobin A1c % 6.1 % (<6.0)
[2024-06-19 07:28] LABS: Alanine Aminotransferase 29 U/L (0-40); Albumin Level 4.3 g/dL (3.5-5.0); Alkaline Phosphatase 73 U/L (39-117); Anion Gap 12 (12-20); Aspartate Amino Transferase 23 U/L (5-37); Bilirubin Total 0.9 mg/dL (0.0-1.0); Blood Urea Nitrogen 20 mg/dL (9-16); Calcium 9.7 mg/dL (8.4-10.2); Carbon Dioxide 28 mmol/L (22-29); Chloride 103 mmol/L (96-108); Cholesterol 209 mg/dL (<200); Estimated Glomerular Filt Rate > 60; Glucose Random 136 mg/dL (60-115); HDL Cholesterol 46 mg/dL (>40); LDL Cholesterol Calculated 134 mg/dL (<100); Sodium 139 mmol/L (135-145); Total Protein 6.9 g/dL (6.5-8.0); Triglycerides 147 mg/dL (<150)
== END 2024-06-19 06:14 | disposition home or self-care (01) ==
LOC: HO.LAB 06:13
PROVIDERS: PCP Internal Medicine; Visit Provider Internal Medicine
DX: E78.00 Pure hypercholesterolemia, unspecified (principal); Z13.1 Encounter for screening for diabetes mellitus
CPT/HCPCS: 36415; 80053; 80061; 83036

== ENCOUNTER 2024-06-26 11:15 | Outpatient (AMB) | payer OTHER, SELFPAY ==
[2024-06-26 11:16] VITALS: BP 136/88; PULSE 76; O2SAT 97; BMI 29.6
--- NOTE | 2024-06-26 11:16 | A.OFFPC_ITS ---
Vital Signs 06/26/24 11:16 Height 5 ft 8 in Weight 195 lb BMI 29.6 BP 136/88 Blood Pressure Location Lt brachial Position Sitting Pulse 76 Pulse Source Pulse Oximeter Pulse Oximetry (%) 97 Oxygen Delivery Method Room Air Intake Visit Reasons: PE Allergies Sulfa (Sulfonamide Antibiotics) [SULFA (SULFONAMIDE ANTIBIOTICS)] Allergy (Unknown, Verified 06/26/24 11:17) HIVES, swelling and itchiness sulfamethoxazole [From Septra] Allergy (Unknown, Verified 06/26/24 11:17) Unknown trimethoprim [From Septra] Allergy (Unknown, Verified 06/26/24 11:17) Unknown Medication List - Last Reconciled 06/26/24 by Mary Ayers MD blood sugar diagnostic (FreeStyle Lite Strips) As directed check the BS QD blood-glucose meter (FreeStyle Lite Meter kit) As directed cholecalciferol (vitamin D3) 50 mcg PO DAILY cyanocobalamin (vitamin B-12) 1,000 mcg PO DAILY lancets (FreeStyle Lancets) As directed check BS QD lisinopril 5 mg PO DAILY multivitamin 1 tab PO DAILY Tobacco use date assessed: 12/07/23 Dental Screening Dental Screen Date: 06/26/24 Did you have a dental visit in the last 12 months?: Yes Did you have a dental problem in the last 6 months where you did not have access to dental care?: No Was dental information given to patient?: Patient has dentist HPI PE HPI Details 58-year-old overweight male(noted 4 lb w eight loss) with controlled diabetes mellitus hypertension hypercholesterolemia has an ascending aorta dilatation also patient comes in for physical exam last seen in 03/17/2024. Patient's colonoscopy is up-to-date October 2024 years. Had dilated ascending aorta which has been stable.Normal LV ejection fraction 60 65% 2. Mildly increased gradient across aort ic valve without clear aortic stenosis 3. Normal RV systolic pressure 4. Mildly dilated ascending aorta at 3.8 cm 5. No gross pericardial effusion March Medical History Hypercholesterolemia Hypertension Impaired glucose tolerance Leukopenia Obesity (BMI 30-39.9) Vitamin D deficiency Surgical History Status post excision of lipoma History of vasectomy Family History (Updated 06/26/24 @ 11:57 by Mary Ayers MD) Father Esophageal cancer Prostate cancer Mother No problems noted. Brother Liver cancer Colon cancer Paternal Uncle Mouth cancer Lung cancer Leukemia Myocardial infarct Prostate cancer Daughter In good health Family/Other Alcohol abuse Social History (Updated 06/26/24 @ 11:58 by Mary Ayers MD) Housing: House Alcohol intake: current Alcohol intake frequency: holidays/special occasions only Alcohol type: beer, wine and hard liquor Comment: 1-2 a week 2-3 drinks Patient Tobacco Use Status: Never used Tobacco Tobacco use type: Cigarette e-Cigarette/Vaping Use: Never Used Second Hand Smoke Exposure: No service: No Current occupational status: employed Cognitive needs: No Hearing needs: No Vision needs: Yes Questionnaire PHQ-9 Over the last 2 weeks, how often have you been bothered by any of the following problems? 1. Little interest or pleasure in doing things: not at all 2. Feeling down, depressed, or hopeless: not at all 3. Trouble falling or staying asleep, or sleeping too much: not at all 4. Feeling tired or having little energy: not at all 5. Poor appetite or overeating: not at all 6. Feeling bad about yourself - or that you are a failure or have let yourself or your family down: not at all 7. Trouble concentrating on things, such as reading the newspaper or watching television: not at all 8. Moving or speaking so slowly that other people could have noticed. Or the opposite - being so fidgety or restless that you have been moving around a lot more than usual: not at all 9. Thoughts that you would be better off or of hurting yourself in some way: not at all Total score: 0 Depression Screening Interpretation: Negative Depression Screening Done: Yes 72856 - PHQ-9 Billing: Yes Source: Developed by Drs. Ang Adam, Anca Elizondo, Jean Marie Castañeda and colleagues, with an educational anita from [employer]. Thrive Questionnaire Date Thrive assessed: 12/07/23 AUDIT C Alcohol Use Questionnaire (AUDIT-C) 1. How often do you have a drink containing alcohol?: 2-3 times a week 2. How many drinks containing alcohol do you have on a typical day when you are drinking?: 3 or 4 3. How often do you have six or more drinks on one occasion?: Never Total Score: 4 JACQUI-7 AMB Questionnaire JACQUI-7 Date JACQUI - 7 assessed: 06/26/24 Feeling nervous, anxious, or on edge: 0 = Not at all Not being able to stop or control worryin = Not at all Worrying too much about different things: 0 = Not at all Trouble relaxin = Not at all Being so restless that it is hard to sit still: 0 = Not at all Becoming easily annoyed or irritable: 0 = Not at all Feeling afraid as if something awful might happen: 0 = Not at all Total JACQUI-7 score (0-4 normal; 5-9 mild; 10-14 moderate; 15-21 severe): 0 Source: Developed by Drs. Ang Adam, Anca Elizondo, Jean Marie Castañeda and colleagues, with an educational anita from [employer]. JACQUI-7 Assessment Billing JACQUI-7 Assessment Tool: JACQUI-7 Assessment 76115 Review of Systems Const Denies poor appetite and Denies weakness Eyes Denies no additional complaints ENT Reports Normal hearing present, Denies dizziness, Denies nasal congestion, Denies tinnitus and Denies sore throat Card Denies chest pain, Denies syncope, Denies rapid heart rate and Denies dyspnea Resp Denies cough and Denies dyspnea GI Denies change in stool character, Reports constipation, Denies diarrhea, Denies nausea and Denies vomiting Denies dysuria and Denies urinary frequency Neuro Reports Normal hearing present, Denies confusion, Denies dizziness, Denies syncope and Denies weakness Psych Denies confusion Physical exam (Primary Care) Vital Signs: Last Vital Signs Pulse 76 06/26/24 11:16 BP 136/88 06/26/24 11:16 Pulse Ox 97 06/26/24 11:16 Oxygen Delivery Method Room Air 06/26/24 11:16 BMI result Body Mass Index 29.6 Tobacco/Smoking Status: Tobacco use Status Tobacco use date assessed 12/07/23 06/26/24 11:18 Patient Tobacco Use Status Never used Tobacco 06/26/24 11:18 Tobacco use type Cigarette 06/26/24 11:18 e-Cigarette/Vaping Use Never Used 06/26/24 11:18 PHQ-9: PHQ-9 Score PHQ-9: Total score 0 06/26/24 11:36 Depression Screening Interpretation: Negative Thrive Assessment: Date of Thrive Assessment Date Thrive assessed 12/07/23 06/26/24 11:18 Const General: No confusion Orientation/consciousness: No confusion HENMT Head: Yes normocephalic Ears: external ears normal and TM's normal bilaterally Face and sinus: Yes normal facial exam Mouth: moist mucous membranes Throat: Yes tonsils normal Eyes Conjunctivae: conjunctivae normal Pupils: Equal, round and reactive pupils present and Pupil accommodation reflex normal Direct Ophthalmoscopy: normal light reflex Neck Neck: No lymphadenopathy Thyroid: Thyroid normal Chest Chest palpation & inspection: normal inspection of the chest Resp Effort & Inspection: normal respiratory effort and no audible wheezes Auscultation: clear to auscultation bilaterally, no crackles, no wheezes and lung sounds not diminished Cardio Rate: regular rate Rhythm: regular rhythm Peripheral pulses: radial pulses present and dorsalis pedis present GI Other: guaiac negative prostate mild enlarged Palpation (GI): no masses Auscultation: normal bowel sounds and normoactive bowel sounds Male General Exam: Yes normal external exam Skin General skin exam: no rashes or lesions noted Rashes: no rashes Neuro General: No confusion Cranial nerves: Yes Equal, round and reactive pupils present and Yes Normal hearing present Cognition (Neuro): normal cognition Gait exam (Neuro): Normal gait present Motor exam (neuro): 5/5 motor strength present throughout Deep tendon reflexes (DTR's): Right brachioradialis reflex intensity grade: 2+, Left brachioradialis reflex intensity grade: 2+, Right patellar reflex intensity grade: 2+ and Left patellar reflex intensity grade: 2+ Extrem General: No edema Results AMB Hemoglobin A1c AMB Hemoglobin A1c 6.2 % Last Edit by Chandni Dyer CMA on 06/26/24 11 :36 Results Reviewed Results Reviewed: Laboratory Last Values Hgb A1c (Clinic) 6.2 % (4.0-6.0) H 06/26/24 11:18 Assessment and Plan Assessment & Plan (1) Annual physical exam: Code(s): Z00.00 - Encounter for general adult medical examination without abnormal findings Plan: Patient is advised to eat healthy, keep well hydrated, keep active and have ad equate sleep. (2) Type 2 diabetes mellitus with hyperglycemia: Code(s): E11.65 - Type 2 diabetes mellitus with hyperglycemia Plan: Decrease the amount of carbohydrate intake, pasta, bread, rice and potatoes are all sugar and that is aside from all the sweet stuff, remember that fruits are good but they are Sweet also. Hemoglobin A1c goal of less than 6.5 diet controlled (3) Hypertension: Code(s): I10 - Essential (primary) hypertension Plan: Blood pressure on lisinopril 5 mg once a day (4) Hypercholesterolemia: Code(s): E78.00 - Pure hypercholesterolemia, unspecified Plan: Avoid fried foods, chicken skin, eggs, butter margarine, pastries and meat. Be it pork or beef they have a lot of cholesterol LDL goal of less than 130 and triglyceride of less than 150. presently on simvastin (5) Ascending aorta dilatation: Comment: January 2023 3.7, March 2024 3.8 cm Code(s): I77.810 - Thoracic aortic ectasia Plan: Continuing to monitor. Orders: Orders Thyroid Stimulating Hormone Today E11.65 - Type 2 diabetes mellitus with hyperglycemia Free T4 (Free Thyroxine) Today E11.65 - Type 2 diabetes mellitus with hyperglycemia Creatinine Urine Today E11.65 - Type 2 diabetes mellitus with hyperglycemia Vitamin B12 and Folate Today E11.65 - Type 2 diabetes mellitus with hyperglycemia Lipid Panel 3 Months E78.00 - Pure hypercholesterolemia, unspecified AMB Hemoglobin A1c Today Z13.9 - Encounter for screening, unspecified Prostate Specific Antigen Scr Today E11.65 - Type 2 diabetes mellitus with hyperglycemia Microalbumin, Random (w Creat) Today E11.65 - Type 2 diabetes mellitus with hyperglycemia Comprehensive Met. Panel 3 Months E78.00 - Pure hypercholesterolemia, unspecified Medications: New rosuvastatin 5 mg PO DAILY 90 tabs 3RF E78.00 - Pure hypercholesterolemia, unspecified Coding Level of Care Code Est Pt Prev Care 40-64y(59827) Diagnoses Annual physical exam Z00.00 Type 2 diabetes mellitus with hyperglycemia E11.65 Hypertension I10 Hypercholesterolemia E78.00 Ascending aorta dilatation I77.810 Additional Codes JACQUI-7 Assessment Billing - JACQUI-7 Assessment Tool: JACQUI-7 Assessment [id number] ([id number])
== END 2024-06-26 14:01 | disposition home or self-care (01) ==
PROVIDERS: PCP Internal Medicine; Visit Provider Internal Medicine
DX: Z00.00 Encounter for general adult medical examination without abnormal findings (principal); E11.65 Type 2 diabetes mellitus with hyperglycemia; I77.810 Thoracic aortic ectasia; I10 Essential (primary) hypertension; E78.00 Pure hypercholesterolemia, unspecified
CPT/HCPCS: 83036; 99396

== ENCOUNTER 2024-11-24 14:29 | Outpatient (AMB) | payer OTHER, SELFPAY ==
--- NOTE | 2024-11-24 14:39 | MHC.PC.OV ---
Vital Signs 11/24/24 14:40 Height 5 ft 8 in Weight 199 lb 6 oz BMI 30.3 BP 140/70 H Blood Pressure Location Lt brachial Position Sitting Pulse 73 Pulse Source Pulse Oximeter Temp 97.1 F Temp Source Oral Pulse Oximetry (%) 97 Oxygen Delivery Method Room Air Intake Visit Reasons: Hypertension Intake Note: Patient is here to follow up on HTN. Fuel Distribution System Operator: Not Required per policy Accompanied by: Self / Same As Patient Allergies Sulfa (Sulfonamide Antibiotics) [SULFA (SULFONAMIDE ANTIBIOTICS)] Allergy (Unknown, Verified 11/24/24 14:40) HIVES, swelling and itchiness sulfamethoxazole [From ] Allergy (Unknown, Verified 11/24/24 14:40) Unknown trimethoprim [From ] Allergy (Unknown, Verified 11/24/24 14:40) Unknown Medication List - Last Reconciled 11/24/24 by Mary Ayers MD blood sugar diagnostic (FreeStyle Lite Strips) As directed check the BS QD blood-glucose meter (FreeStyle Lite Meter kit) As directed cholecalciferol (vitamin D3) 50 mcg PO DAILY cyanocobalamin (vitamin B-12) 1,000 mcg PO DAILY lancets (FreeStyle Lancets) As directed check BS QD lisinopril 10 mg PO DAILY multivitamin 1 tab PO DAILY rosuvastatin 5 mg PO DAILY Tobacco use date assessed: 11/24/24 Dental Screening Dental Screen Date: 11/24/24 Did you have a dental visit in the last 12 months?: Yes Did you have a dental problem in the last 6 months where you did not have access to dental care?: No Was dental information given to patient?: Patient has dentist HPI Hypertension HPI Details The patient is a 59-year-old male presenting with chronic hyperlipidemia and hypertension for follow-up management. The patient was previously noted to have significantly elevated cholesterol levels, and his medication was switched to rosuvastatin. He is currently being evaluated to determine the effectiveness of this treatment. His last recorded hemoglobin A1c was 6.3, showing diet-controlled diabetes mellitus, with a slight upward trend over recent evaluations. The patient reports an increase in his blood pressure, noticing episodes of elevated values, leading to self-adjustment of his antihypertensive medication dosage. He doubled his prescribed dose after observing persistent high readings of 180/93 mmHg, especially elevated during morning hours from November, without waiting for full effect duration. Despite the adjustment, occasional morning spikes in blood pressure are still noted. He has expressed concern about anxiety potentially contributing to elevated readings and reports a noticeable lowering of blood pressure on retesting after a brief rest. Additionally, the patient has noted increased anxiety with the act of measuring blood pressure at home. The patient reports usage of tadalafil obtained through an santy for managing erectile dysfunction, with effectiveness lasting two to three days per dose. He did not take the medication during the weekend of this visit. He expresses concern about the impact of tadalafil on blood pressure levels and maintains awareness about avoiding concurrent use with nitrate medications. [facility] Medical History Hypercholesterolemia Hypertension Impaired glucose tolerance Leukopenia Obesity (BMI 30-39.9) Vitamin D deficiency Surgical History Status post excision of lipoma History of vasectomy Family History Father Esophageal cancer Prostate cancer Mother No problems noted. Brother Liver cancer Colon cancer Paternal Uncle Mouth cancer Lung cancer Leukemia Myocardial infarct Prostate cancer Daughter In good health Family/Other Alcohol abuse Social History Housing: House Alcohol intake: current Alcohol intake frequency: holidays/special occasions only Alcohol type: beer, wine and hard liquor Comment: 1-2 a week 2-3 drinks Patient Tobacco Use Status: Never used Tobacco Tobacco use type: Cigarette e-Cigarette/Vaping Use: Never Used Second Hand Smoke Exposure: No service: No Current occupational status: employed Cognitive needs: No Hearing needs: No Vision needs: Yes (Glasses) Questionnaire PHQ-9 Over the last 2 weeks, how often have you been bothered by any of the following problems? 1. Little interest or pleasure in doing things: not at all 2. Feeling down, depressed, or hopeless: not at all 3. Trouble falling or staying asleep, or sleeping too much: not at all 4. Feeling tired or having little energy: not at all 5. Poor appetite or overeating: not at all 6. Feeling bad about yourself - or that you are a failure or have let yourself or your family down: not at all 7. Trouble concentrating on things, such as reading the newspaper or watching television: not at all 8. Moving or speaking so slowly that other people could have noticed. Or the opposite - being so fidgety or restless that you have been moving around a lot more than usual: not at all 9. Thoughts that you would be better off or of hurting yourself in some way: not at all Total score: 0 Depression Screening Interpretation: Negative Depression Screening Done: Yes Source: Developed by Drs. Ang Adam, Anca Elizondo, Jean Marie Castañeda and colleagues, with an educational anita from [employer]. Thrive Questionnaire Date Thrive assessed: 11/24/24 I am a: Patient What is your living situation today?: I have a steady place to live Within the past 12 months, did the food you bought not last and you didn't have the money to get more?: Never true Within the past 12 months, did you worry whether your food would run out before you got money to buy more?: Never true Do you have trouble paying for medicines?: No Do you have trouble getting transportation to medical appointments?: No Do you have trouble paying your heating and electricity bill?: No Do you have trouble taking care of your child, family member or friend?: No Do you have trouble with day-to-day activities such as bathing, preparing meals, shopping, managing finances, etc.?: No Are you currently unemployed and looking for a job?: No Are you interested in more education?: No Please select the resources that you would like help with: None Currently or been in a relationship where the following occur: I choose not to answer THRIVE Score: 0 AUDIT C Alcohol Use Questionnaire (AUDIT-C) 2. How many drinks containing alcohol do you have on a typical day when you are drinking?: 3 or 4 3. How often do you have six or more drinks on one occasion?: Never Total Score: 1 JACQUI-7 AMB Questionnaire JACQUI-7 Date JACQUI - 7 assessed: 11/24/24 Feeling nervous, anxious, or on edge: 0 = Not at all Not being able to stop or control worryin = Not at all Worrying too much about different things: 0 = Not at all Trouble relaxin = Not at all Being so restless that it is hard to sit still: 0 = Not at all Becoming easily annoyed or irritable: 0 = Not at all Feeling afraid as if something awful might happen: 0 = Not at all Total JACQUI-7 score (0-4 normal; 5-9 mild; 10-14 moderate; 15-21 severe): 0 Source: Developed by Drs. Ang Adam, Anca Elizondo, Jean Marie Castañeda and colleagues, with an educational anita from [employer]. Physical exam (Primary Care) Vital Signs: Last Vital Signs Temp 97.1 F 11/24/24 14:40 Pulse 73 11/24/24 14:40 BP 140/70 H 11/24/24 14:40 Pulse Ox 97 11/24/24 14:40 Oxygen Delivery Method Room Air 11/24/24 14:40 BMI result Body Mass Index 30.3 Tobacco/Smoking Status: Tobacco use Status Tobacco use date assessed 11/24/24 11/24/24 14:47 Patient Tobacco Use Status Never used Tobacco 11/24/24 14:47 Tobacco use type Cigarette 11/24/24 14:47 e-Cigarette/Vaping Use Never Used 11/24/24 14:47 PHQ-9: PHQ-9 Score PHQ-9: Total score 0 11/24/24 15:05 Depression Screening Interpretation: Negative Thrive Assessment: Date of Thrive Assessment Date Thrive assessed 11/24/24 11/24/24 14:47 Currently or been in a relationship where the following occur: I choose not to answer Const General: alert; No acute distress Eyes Conjunctivae: conjunctivae normal Resp Auscultation: clear to auscultation bilaterally Cardio Rate: regular rate Rhythm: regular rhythm GI Inspection: Yes normal to inspection Extrem General: Yes normal to inspection and No edema Results AMB Hemoglobin A1c AMB Hemoglobin A1c 6.3 % Last Edit by WILBUR Baez on 11/24/24 14:52 Results Reviewed Results Reviewed: Laboratory Last Values Hgb A1c (Clinic) 6.3 % (4.0-6.0) H 11/24/24 14:38 Coding Level of Care Code Est Pt Level 4 (11412) Diagnoses Type 2 diabetes mellitus with hyperglycemia E11.65 Hypertension I10 Hypercholesterolemia E78.00 Obesity (BMI 30-39.9) E66.9 Erectile dysfunction N52.9 Assessment & Plan Assessment & Plan (1) Type 2 diabetes mellitus with hyperglycemia: Code(s): E11.65 - Type 2 diabetes mellitus with hyperglycemia Category: Medical (2) Hypertension: Code(s): I10 - Essential (primary) hypertension Category: Medical Plan: Discussed that the BP here is good (3) Hypercholesterolemia: Code(s): E78.00 - Pure hypercholesterolemia, unspecified Category: Medical (4) Obesity (BMI 30-39.9): Code(s): E66.9 - Obesity, unspecified Category: Medical (5) Erectile dysfunction: Code(s): N52.9 - Male erectile dysfunction, unspecified Category: Medical Plan - Continue monitoring blood cholesterol levels to assess the response to rosuvastatin therapy. - Reinforce adherence to lifestyle modifications and dietary control to manage elevated cholesterol levels. - Maintain current 10 mg dosing of antihypertensive medication, and consider an ambulatory blood pressure monitor for further evaluation if discrepancies between home and office readings persist. - Monitor dietary adherence for diabetes mellitus management to ensure hemoglobin A1c remains controlled. - Educate the patient about the risks and contraindications associated with taking tadalafil, such as the potential drop in blood pressure when used with nitrate medication. - Consider stress management techniques to alleviate anxiety that may influence home blood pressure readings. - Encourage continued discussion on health maintenance and medication compliance at subsequent visits. Orders: Orders AMB Hemoglobin A1c Today E11.65 - Type 2 diabetes mellitus with hyperglycemia Medications: New lisinopril 10 mg PO DAILY 90 tabs 1RF tadalafil (Cialis) administer approximately 30min before sexual activity; do not use more than 1 dose per 24hrs 10 mg PO DAILY PRN 14 tabs 0RF sexual activity
[2024-11-24 14:40] VITALS: BP 140/70; PULSE 73; TEMP 36.2; O2SAT 97; BMI 30.3
== END 2024-11-24 16:17 | disposition home or self-care (01) ==
PROVIDERS: PCP Internal Medicine; Visit Provider Internal Medicine
DX: E11.65 Type 2 diabetes mellitus with hyperglycemia (principal); I10 Essential (primary) hypertension; E66.9 Obesity, unspecified; Z68.30 Body mass index [BMI] 30.0-30.9, adult; E78.00 Pure hypercholesterolemia, unspecified; N52.9 Male erectile dysfunction, unspecified

== ENCOUNTER → 2024-11-24 14:29 | Outpatient (BNVA) | payer OTHER, SELFPAY | PROVIDERS: PCP Internal Medicine; Visit Provider Internal Medicine | DX: E11.65 Type 2 diabetes mellitus with hyperglycemia (principal); I10 Essential (primary) hypertension; E78.00 Pure hypercholesterolemia, unspecified; E66.9 Obesity, unspecified; Z68.30 Body mass index [BMI] 30.0-30.9, adult; N52.9 Male erectile dysfunction, unspecified; Z79.899 Other long term (current) drug therapy | CPT/HCPCS: 83036; 96127 ==

== ENCOUNTER 2025-02-13 06:24 | Outpatient (REF) | payer OTHER, SELFPAY ==
[2025-02-13 07:47] LABS: Creatinine Urine 84.79 mg/dL; Microalbumin Urine < 5.0 mg/L
[2025-02-13 07:55] LABS: Alanine Aminotransferase 35 U/L (0-40); Albumin Level 4.1 g/dL (3.5-5.0); Anion Gap 10 (12-20); Aspartate Amino Transferase 24 U/L (5-37); Bilirubin Total 0.7 mg/dL (0.0-1.0); Blood Urea Nitrogen 20 mg/dL (9-16); Calcium 9.2 mg/dL (8.4-10.2); Carbon Dioxide 28 mmol/L (22-29); Chloride 104 mmol/L (96-108); Cholesterol 170 mg/dL (<200); Estimated Glomerular Filt Rate > 60; Glucose Random 136 mg/dL (60-115); HDL Cholesterol 44 mg/dL (>40); LDL Cholesterol Calculated 101 mg/dL (<100); Potassium 4.2 mmol/L (3.3-5.1); Sodium 138 mmol/L (135-145); Total Protein 6.7 g/dL (6.5-8.0); Triglycerides 125 mg/dL (<150)
[2025-02-13 07:59] LABS: Alkaline Phosphatase 79 U/L (39-117)
[2025-02-13 08:12] LABS: Free T4 (Free Thyroxine) 1.02 ng/dL (0.71-1.85); Thyroid Stimulating Hormone 1.73 uIU/mL (0.32-4.0)
[2025-02-13 08:30] LABS: Folate 13.2 ng/mL (> or = 4.0); Prostate Specific Antigen Scr 0.56 ng/mL (<0.05-4.0); Vitamin B12 683 pg/mL (200-900)
== END 2025-02-13 06:25 | disposition home or self-care (01) ==
LOC: HO.LAB 06:24
PROVIDERS: PCP Internal Medicine; Visit Provider Internal Medicine
DX: E11.65 Type 2 diabetes mellitus with hyperglycemia (principal); E78.00 Pure hypercholesterolemia, unspecified; Z12.5 Encounter for screening for malignant neoplasm of prostate
CPT/HCPCS: 36415; 80053; 80061; 82570; 82607; 82746; 83036; 84153; 84439; 84443

== ENCOUNTER 2025-02-13 15:20 | Outpatient (AMB) | payer OTHER, SELFPAY ==
--- NOTE | 2025-02-13 15:23 | MHC.PC.OV ---
Vital Signs 02/13/25 15:24 Height 5 ft 8 in Weight 201 lb BMI 30.6 BP 130/86 Blood Pressure Location Lt brachial Position Sitting Pulse 71 Pulse Source Pulse Oximeter Temp 97.3 F Temp Source Temporal Artery Scan Pulse Oximetry (%) 96 Oxygen Delivery Method Room Air Intake Visit Reasons: Labs f/u Intake Note: Patient is here to follow up on Lab results. Central Office Operator Supervisor Required: No Hostess Party Sales Representative: Not Required per policy Accompanied by: Self / Same As Patient Allergies Sulfa (Sulfonamide Antibiotics) [SULFA (SULFONAMIDE ANTIBIOTICS)] Allergy (Unknown, Verified 02/13/25 15:24) HIVES, swelling and itchiness sulfamethoxazole [From Septra] Allergy (Unknown, Verified 02/13/25 15:24) Unknown trimethoprim [From Septra] Allergy (Unknown, Verified 02/13/25 15:24) Unknown Tobacco use date assessed: 02/13/25 Dental Screening Dental Screen Date: 11/24/24 [facility] Medical History Hypercholesterolemia Hypertension Impaired glucose tolerance Leukopenia Obesity (BMI 30-39.9) Vitamin D deficiency Surgical History Status post excision of lipoma History of vasectomy Family History Father Esophageal cancer Prostate cancer Mother No problems noted. Brother Liver cancer Colon cancer Paternal Uncle Mouth cancer Lung cancer Leukemia Myocardial infarct Prostate cancer Daughter In good health Family/Other Alcohol abuse Social History Housing: House Alcohol intake: current Alcohol intake frequency: holidays/special occasions only Alcohol type: beer, wine and hard liquor Comment: 1-2 a week 2-3 drinks Patient Tobacco Use Status: Never used Tobacco Tobacco use type: Cigarette e-Cigarette/Vaping Use: Never Used Second Hand Smoke Exposure: No service: No Current occupational status: employed Cognitive needs: No Hearing needs: No Vision needs: Yes (Glasses) Questionnaire Thrive Questionnaire Date Thrive assessed: 11/24/24 JACQUI-7 AMB Questionnaire JACQUI-7 Date JACQUI - 7 assessed: 11/24/24 Source: Developed by Drs. Ang Adam, Anca Elizondo, Jean Marie Castañeda and colleagues, with an educational anita from [employer]. Physical exam (Primary Care) Vital Signs: Last Vital Signs Temp 97.3 F 02/13/25 15:24 Pulse 71 02/13/25 15:24 BP 130/86 02/13/25 15:24 Pulse Ox 96 02/13/25 15:24 Oxygen Delivery Method Room Air 02/13/25 15:24 BMI result Body Mass Index 30.6 Tobacco/Smoking Status: Tobacco use Status Tobacco use date assessed 02/13/25 02/13/25 15:31 Patient Tobacco Use Status Never used Tobacco 02/13/25 15:31 Tobacco use type Cigarette 02/13/25 15:31 e-Cigarette/Vaping Use Never Used 02/13/25 15:31 Thrive Assessment: Date of Thrive Assessment Date Thrive assessed 11/24/24 02/13/25 15:31 Const General: alert; No acute distress Eyes Conjunctivae: conjunctivae normal Resp Auscultation: clear to auscultation bilaterally Cardio Rate: regular rate Rhythm: regular rhythm GI Inspection: Yes normal to inspection Extrem General: Yes normal to inspection and No edema Results AMB Hemoglobin A1c AMB Hemoglobin A1c 6.4 % Last Edit by WILBUR Baez on 02/13/25 15:39 Coding Level of Care Code Est Pt Level 4 (78280) Diagnoses Type 2 diabetes mellitus with hyperglycemia E11.65 Hypercholesterolemia E78.00 Hypertension I10 Obesity (BMI 30-39.9) E66.9 Assessment & Plan Assessment & Plan (1) Type 2 diabetes mellitus with hyperglycemia: Comment: [facility] Code(s): E11.65 - Type 2 diabetes mellitus with hyperglycemia Category: Medical Plan: Decrease the amount of carbohydrate intake, pasta, bread, rice and potatoes are all sugar and that is aside from all the sweet stuff, remember that fruits are good but they are Sweet also. Hemoglobin A1c goal of less than 6.5. Patient is diet controlled (2) Hypercholesterolemia: Code(s): E78.00 - Pure hypercholesterolemia, unspecified Category: Medical Plan: Avoid fried foods, chicken skin, eggs, butter margarine, pastries and meat. Be it pork or beef they have a lot of cholesterol LDL goal of less than 100 and triglyceride of less than 150 on rosuvastatin 5 mg once a day (3) Hypertension: Code(s): I10 - Essential (primary) hypertension Category: Medical Plan: Blood pressure is good Continue with blood pressure medication. Decrease salt intake and exercise on lisinopril 10 mg once a day (4) Obesity (BMI 30-39.9): Code(s): E66.9 - Obesity, unspecified Category: Medical Plan: Diet and exercise Plan History of Present Illness The patient is a 59-year-old male presenting for a follow-up visit. He has a history of essential hypertension controlled with lisinopril 10 mg daily. His diabetes is managed with diet, with a current hemoglobin A1c of 6.4%, reflecting good control. The patient is on rosuvastatin 5 mg daily for hypercholesterolemia, with improvements noted in his LDL cholesterol, now at 101 mg/dL. He has mild ascending aortic dilation, monitored via echocardiograms. Recent lab work shows normal electrolytes, renal function, and fasting blood sugar of 136 mg/dL. The patient remains asymptomatic from a cardiovascular perspective and denies dizziness or chest pain. He is due for a colonoscopy, having last had one in October 2019. Ophthalmology follow-up is due for annual diabetes-related examinations, and arrangements have been made for a referral through [facility]. Health Maintenance - Colonoscopy is due. Last screening in October 2019. - Annual ophthalmology examination is planned; patient referred to [facility]. - Blood pressure monitored at home, remains within target range. - Fasting blood work completed in January; electrolytes and renal function normal. - Cholesterol management with rosuvastatin; LDL cholesterol target <100 mg/dL. - Diabetes management with diet control; A1c goal <6.5%. Social History - No information provided regarding employment, housing, education, family status, or substance use. - Exercise and level of activity discussed, including adherence to a diet-controlled regimen. Review of Systems - Cardiovascular: Denies dizziness or chest pain. - General: Reports good overall health status. Physical Exam - Vitals- Blood pressure noted to be stable at 130/82 mmHg. Results - Labs: Fasting blood glucose 136 mg/dL, LDL cholesterol improved to 101 mg/dL; electrolytes and renal function within normal limits. - Echocardiogram: Ascending aortic dilation mild at 3.8 cm (March 2024). Plan 1. 5%. The ascending aortic dilatation will be monitored with follow-up echocardiograms. A referral to [facility] for an ophthalmology exam has been arranged. The patient is due for a colonoscopy, given the last was in October 2019, and should schedule this promptly. Lifestyle modifications, including diet and exercise, should be continued to optimize cardiovascular health outcomes.: Patient was informed and verbally consented to the use of an ambient scribe for clinic note documentation during this visit. Discussion Notes I discussed the management of the patient's chronic conditions: essential hypertension, hypercholesterolemia, type 2 diabetes mellitus, and ascending aortic dilatation. I emphasized the importance of maintaining blood pressure control with lisinopril and managing cholesterol with rosuvastatin, highlighting the need for an LDL cholesterol level below 100 mg/dL. We reviewed his diabetes management plan, targeting an A1c level less than 6.5%. I advised monitoring his ascending aortic dilatation with future echocardiograms. An ophthalmology referral for annual diabetic screenings was recommended through [facility]. I also instructed the patient to schedule a colonoscopy, due since October 2019. The importance of lifestyle modifications, such as diet and exercise, in managing his cardiovascular risk was also discussed. Patient Instructions - Continue taking lisinopril and rosuvastatin as prescribed. - Keep following your diet plan for diabetes control. - Get a colonoscopy scheduled soon since it's overdue. - Go for an annual eye check-up at [facility]. - Make sure to maintain a healthy lifestyle with diet and exercise. - Watch for any new symptoms and seek care if needed. Orders: Orders AMB Hemoglobin A1c Today E11.65 - Type 2 diabetes mellitus with hyperglycemia Comprehensive Met. Panel 5 Months E78.00 - Pure hypercholesterolemia, unspecified Hemoglobin A1c 5 Months E78.00 - Pure hypercholesterolemia, unspecified Free T4 (Free Thyroxine) 5 Months E78.00 - Pure hypercholesterolemia, unspecified Vitamin B12 and Folate 5 Months E78.00 - Pure hypercholesterolemia, unspecified Complete Blood Count Auto Diff 5 Months E78.00 - Pure hypercholesterolemia, unspecified Lipid Panel 5 Months E78.00 - Pure hypercholesterolemia, unspecified Thyroid Stimulating Hormone 5 Months E78.00 - Pure hypercholesterolemia, unspecified Prostate Specific Antigen Scr 5 Months E78.00 - Pure hypercholesterolemia, unspecified Referrals Ophthalmology Referral E11.65 - Type 2 diabetes mellitus with hyperglycemia
[2025-02-13 15:24] VITALS: BP 130/86; PULSE 71; TEMP 36.3; O2SAT 96; BMI 30.6
== END 2025-02-13 15:54 | disposition home or self-care (01) ==
LOC: HO.HMCH 15:20
PROVIDERS: PCP Internal Medicine; Visit Provider Internal Medicine
DX: E11.65 Type 2 diabetes mellitus with hyperglycemia (principal); E78.00 Pure hypercholesterolemia, unspecified; E66.9 Obesity, unspecified; Z68.30 Body mass index [BMI] 30.0-30.9, adult; I10 Essential (primary) hypertension

== ENCOUNTER 2025-07-02 06:09 | Outpatient (REF) | payer OTHER, SELFPAY ==
--- OUTSIDE RECORDS SUMMARY | 2025-07-02 06:12 | XMS_ITS | Patient Health Record ---
Author Organization [facility] Address [address] [place] [address] Care Team Providers Care Consumer Product Advisor Name Role Phone Po Mary NINO Primary Care Provider Po Shah Jr Unavailable [phone] Allergies Allergen (clinical drug ingredient) Drug/Non Drug Allergy documented on EMR Reaction Allergy Type Onset Date Status Sulfa Unknown Drug Allergy Active Reason For Referral No Information Medications Medication SIG (Take, Route, Frequency, Duration) Notes Start Date End Date Status MiraLax (colon prep) 8.3 ounce ((238) grams mixed with Gatorade or Crystal Light orally begin at 5:00 p.m. the day before the procedure for 1 day 07/31/2019 Active Vitamin D Active Vitamin B12 Active Immunizations Vaccine Route Administration Date Status Comme nts Influenza Unknown 06/29/2018 Administered Problems Problem Type SNOMED Code ICD Code Onset Dates Problem Status W/U Status Risk Notes Problem [id number] Colon cancer screening (Z12.11) Active confirmed Problem 624198601 Encounter for other preprocedural examination (Z01.818) Active confirmed Problem [id number] Family history o f colon cancer (Z80.0) Active confirmed Plan Of Treatment Future Test Test Name Order Date COLONOSCOPY 02/28/2013 COLONOSCOPY 07/31/2019 Insurance Providers Payer Name Payer Address Payer Phone Subscriber Number Group Number Insured Name Patient Relationship to Insured Coverage Start Date Coverage End Date O [employer] CLAIM[employer] [address] [place] [address] [id number] DONNA TANG Self - patient is the insured Medical (General) History Medical History History ICD Code hx of hypertension Denies [place],DM,CVA,Lung disease,renal dise ase Surgical History Surgery Date(Month/Year) vasectomy
--- OUTSIDE RECORDS SUMMARY | 2025-07-02 06:13 | XMS_ITS | Clinical Summary ---
Author Organization [facility] Address [address] [place], [place] [id number] Phone Care Team Providers Care Cupola Melter Helper Name Role Phone Mary Ayers MD Primary Care Provider [phone] Allergies Active Allergy Reactions Criticality Noted Date Comments Sulfa (Sulfonamide Antibiotics) Hives 06/30 Swelling face Medications lisinopril (PRINIVIL,ZESTRI L) 5 MG tablet Take 5 mg by mouth daily. Active Active Problems No known active problems Social History Tobacco Use Types Packs/Day Years Used Date Smoking Tobacco: Never Passive Smoke Exposure: Never Smokeless Tobacco: Never Tobacco Cessation:Counseling Given: Not Answered Alcohol Use Standard Drinks/Week Comments Yes 0 (1 standard drink = 0.6 oz pur e alcohol) socially Education Answer Date Recorded Are you interested in more education? Not on kristen e 07/26/2023 Are you concerned about learning? Not on file 07/26/2023 No 07/26/2023 No 07/26/2023 Digital Access Answer Date Recorded No 07/26/2023 No 07/26/2023 Reliable internet access at home? Not on file 07/26/2023 Device with a working camera? Not on file Sex and Gender Information Value Date Recorded Sex Assigned at Not on file Legal Sex Male 8:19 AM EDT Gender Identity Not on file Sexual Orientation Not on file Last Filed Vital Signs Vital Sign Reading Time Taken Comments Blood Pressure 110/74 07/26/2023 8:35 AM EDT Pulse 71 07/26/2023 8:35 AM EDT Temperature - - Respiratory Rate 17 07/26/2023 8:35 AM EDT Oxygen Saturation 97% 07/26/2023 8:35 AM EDT Inhaled Oxygen Concentration - - Weight 89.4 kg (197 lb) 07/26/2023 8:35 AM EDT Height 175.3 cm (5' 9 ) 07/26/2023 8:35 AM EDT Body Mass Index 29.09 07/26/2023 8:35 AM EDT Plan of Treatment Health Maintenance Due Date Last Done Comments CREATININE LEVEL 1963 LIPID PANEL 1963 POTASSIUM LEVEL 1963 DEPRESSION SCREENING 1975 HEPATITIS C SCREENING 1981 HIV ONE-TIME SCREENING (18-6 5 YEARS) 1981 SMOKING STATUS SCREENING (On ce After 26 Yrs) 1989 SCREENING FOR DIABETES 1998 COLOGUARD 2008 COLONOSCOPY 2008 COLORECTAL CANCER SCREENING 2008 FIT TEST 2008 FOBT 2008 SIGMOIDOSCOPY 2008 VIRTUAL COLONOSCOPY 2008 ZOSTER VACCINES (1 of 2) 2013 COVID-19 VACCINE (3 - 2023-2 5 season) 2024 03/10/2021, 02/17/2021 Adult Td,Tdap Booster 07/20/2033 07/20/2023 , 05/12/2016 RSV VACCINE (1 - 1-dose 75+ series) 2038 PNEUMOCOCCAL VACCINES (50+ years) Completed 06/19/2022 HEPATITIS A VACCINES Aged Out No long er eligible based on patient's age to complete this topic HIB VACCINES Aged Out No longer eligi ble based on patient's age to complete this topic MENINGOCOCCAL VACCINES (ACWY) Aged Out No longer eligible based on patient's age to complete this topic MENINGOCOCCAL VACCINES (B) Aged Out N o longer eligible based on patient's age to complete this topic Medical Devices Not on file Insurance [facility] [place] [id number] [facility] [place] EPO [facility] POS EPO [facility] POS [facility]PO [facility] POS EPO Care Teams Cupola Melter Helper Relationship Specialty Start Date End Date Mary Ayers MD [address] [place] [address] Drive [address] [place] [address] PCP - General Internal Medicine 07/26/23 Additional Source Comments The information contained in this document represents components of the legal health record. It is not the complete legal health record.[facility]
[2025-07-02 06:32] LABS: MANUAL DIFF FLAG NO
[2025-07-02 07:53] LABS: Hematocrit 44.1 % (42.0-52.0); Hemoglobin 15.5 g/dl (14.0-18.0); Imm Gran Abs Auto 0.01 X10*3/uL (0.00-0.03); Imm Gran Pct Auto 0.3 % (0.0-0.4); Lymphocytes Absolute Auto 0.9 X10*3/uL (1.2-4.9); Mean Corpuscular HGB Conc 35.1 g/dl (31.0-36.0); Mean Corpuscular Hemoglobin 30.8 pg (27.0-33.0); Mean Corpuscular Volume 87.5 fL (80.0-98.0); NRBC Abs Auto 0.000 X10*3/uL (0.0-0.012); NRBC Pct Auto 0.0 /100WBC (0.0-0.2); Platelet Count 194 X10*3/uL (160-400); Red Blood Count 5.04 X10*6/uL (4.60-5.80); White Blood Count 3.5 X10*3/uL (4.8-10.8)
[2025-07-02 08:27] LABS: Alanine Aminotransferase 38 U/L (0-40); Albumin Level 4.5 g/dL (3.5-5.0); Alkaline Phosphatase 75 U/L (39-117); Anion Gap 12 (12-20); Aspartate Amino Transferase 29 U/L (5-37); Blood Urea Nitrogen 22 mg/dL (9-16); Calcium 9.3 mg/dL (8.4-10.2); Carbon Dioxide 30 mmol/L (22-29); Chloride 101 mmol/L (96-108); Cholesterol 174 mg/dL (<200); Estimated Glomerular Filt Rate > 60; HDL Cholesterol 46 mg/dL (>40); Potassium 4.3 mmol/L (3.3-5.1); Sodium 139 mmol/L (135-145); Total Protein 6.8 g/dL (6.5-8.0); Triglycerides 123 mg/dL (<150)
[2025-07-02 08:49] LABS: Free T4 (Free Thyroxine) 1.09 ng/dL (0.71-1.85); Thyroid Stimulating Hormone 1.63 uIU/mL (0.32-4.0)
[2025-07-02 08:50] LABS: Folate 15.0 ng/mL (> or = 4.0); Vitamin B12 724 pg/mL (200-900)
== END 2025-07-02 06:10 | disposition home or self-care (01) ==
LOC: HO.LAB 06:09
PROVIDERS: PCP Internal Medicine; Visit Provider Internal Medicine
DX: Z12.5 Encounter for screening for malignant neoplasm of prostate (principal); E78.00 Pure hypercholesterolemia, unspecified; Z00.00 Encounter for general adult medical examination without abnormal findings; E11.65 Type 2 diabetes mellitus with hyperglycemia; E66.9 Obesity, unspecified; I10 Essential (primary) hypertension; R13.10 Dysphagia, unspecified; Z68.30 Body mass index [BMI] 30.0-30.9, adult
CPT/HCPCS: 36415; 80053; 80061; 82607; 82746; 83036; 84153; 84439; 84443; 85025

== ENCOUNTER 2025-07-02 13:43 | Outpatient (AMB) | payer OTHER, SELFPAY ==
[2025-07-02 13:45] VITALS: BP 154/82; PULSE 80; O2SAT 97; BMI 30.9
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
--- OUTSIDE RECORDS SUMMARY | 2025-07-02 15:00 | XMS_ITS | Clinical Summary ---
Author Organization [facility] Address [address] [place], [place] [id number] Phone Care Team Providers Care Hospice Bereavement Coordinator Name Role Phone Mary Ayers MD Primary Care Provider Allergies Active Allergy Reactions Criticality Noted Date [...] topic Medical Devices Not on file Insurance [facility] [place] [id number] [facility] POS EPO [facility] POS EPO [facility] POS EPO [facility] POS EPO Care Teams Hospice Bereavement Coordinator Relationship Specialty Start Date End Date Mary Ayers MD [address] [place] [address] [address] [place] [address] PCP - General Internal Medicine 07/26/23 Additional Source Comments The information contained in this document represents components of the legal health record. It is not the complete legal health record.[facility]
== END 2025-07-02 14:24 | disposition home or self-care (01) ==
LOC: HO.HMCH 13:43
PROVIDERS: PCP Internal Medicine; Visit Provider Internal Medicine
DX: Z00.00 Encounter for general adult medical examination without abnormal findings (principal); E11.65 Type 2 diabetes mellitus with hyperglycemia; E66.9 Obesity, unspecified; Z68.30 Body mass index [BMI] 30.0-30.9, adult; E78.00 Pure hypercholesterolemia, unspecified; I10 Essential (primary) hypertension; R13.10 Dysphagia, unspecified